=== PATIENT | male | born 1960 | race Caucasian/White ===

== ENCOUNTER 2024-08-20 08:33 | Outpatient (CLI) | payer OTHER, SELFPAY ==
--- NOTE | ~2024-08-20 | XR_ITS ---
XR wrist LT min 3V Ordering provider: Kale Langford, History: . fall, left wrist pain . Comparison: None. FINDINGS: BONES: Chip of bone is seen posteriorly which may indicate triquetral fracture. Follow-up advised.. N o definite scaphoid fracture. Sclerotic changes in the lunate bone. JOINT SPACES: Slight narrowing of the radiocarpal joint. SOFT TISSUES: Normal. IMPRESSION: Highly suggestive triquetral fracture. Sclerotic changes in the lunate bone. Fracture cannot be exclu ded. Follow-up advised. Reviewed, dictated and finalized at location A. [facility] IMPRESSION: Highly suggestive triquetral fracture. Sclerotic changes in the lunate bone. Fr acture cannot be excluded. Follow-up advised.
== END 2024-08-20 08:34 | disposition home or self-care (01) ==
PROVIDERS: PCP Internal Medicine; Visit Provider Internal Medicine
DX: R93.89 Abnormal findings on diagnostic imaging of other specified body structures (principal); M25.532 Pain in left wrist
CPT/HCPCS: 73110

== ENCOUNTER 2025-07-02 00:20 | Day surgery (SDC) | payer OTHER, SELFPAY ==
--- OUTSIDE RECORDS SUMMARY | 2025-06-04 01:15 | XMS_ITS | Continuity of Care Document ---
Author Organization [facility] Address [address] [place] [address] Phone Care Team Providers Care Investment Executive Name Role Phone Graeme Truong Unavailable Unavailable Procedures Procedure Date Therapeutic Activities Neuromuscular Re-Ed Therapeutic Exercise Progress Note Therapeutic Activities Neuromuscular Re-Ed Therapeutic Exercise Therapeutic Activities Neuromuscular Re-Ed Therapeutic Exercise Manual Therapy Electrical Stimulation Therapeutic Activities Neuromuscular Re-Ed Therapeutic Exercise Electrical Stimulation Doc neg elder mal no plan PT Evaluation Moderate Complexity Therapeutic Activities Neuromuscular Re-Ed Advance Directives Directive Yes / No Effective Date File Name No Information Encounters Encounter Description Practice Location Reason(s) For Visit Diagnoses Date Provider Providers Copied on Encounter [facility], [address], [place], [place], [id number], [place] tel:[phone] [place] No Information Francisco Bedolla. [address], [address], [place], [address], [place]. tel:[phone] Referring Provider: Kale Langford, [address] [place] [address], [address]. tel:[phone], [id number], [phone] [place] No Information 5 Muehl Graeme. [address] [place] [address], [address] tel: [phone] Referring Provider: Joycelyn [place], [place], [facility]. tel:[phone], [id number], tel:[phone] [place] No Information 0- 5 Muehl Graeme. [address] [place] [address], [place] [address], . tel: [phone] Referring Provider: Joycelyn [place], [place], [facility]. tel:[phone], [id number], tel:[phone] [place] No Information 5 5 Muehl Graeme. [address] [place] [address], [address], [facility], . tel: [phone] Referring Provider: Joycelyn [place], [place], [facility]. tel:[phone], [id number], tel:[phone] [place] No Information 3 5 Muehl Graeme. [address] [place] [address], [place] [address], . tel: [phone] Referring Provider: Joycelyn [place], [place], [facility]. tel:[phone] Family History Family Member Type Diagnosis Age At Onset No Information Payers Payer name Insurance type Covered libertarian ID Authoriza tion(s) Consociate CI [id number] Social History Type Description Quantity Date Captured Comments Sex Male Smoking Status No Information Chief Complaint And Reason For Visit No Information Reason For Referral Reason For Referral No Information History Of Present Illness Encounter Date Complaint History Of Prese nt Illness No Information Functional Status Date Functional Assessmen t No Information Instructions Date Instruction Additional Infor mation No Information Assessments Type Assessment Date No Information Patient Care Teams Name Effective Dates (start - stop) Status Members No Information
--- NOTE | 2025-06-21 10:20 | PC.NURSE ---
[facility] has started construction of its new state of the art ER which will open Spring 2026. With this, we anticipate parking may be a challenge for some our surgical patients and families. Parking spaces are limited but are available for all Surgical, obstetrics, and ER patients sharing this lot. If you arrive and find you are having a hard time finding a parking space, please note that we understand the challenges, please drive around the hospital and park near Hospital Entrance 1. When you enter this entrance, you can ask a volunteer to direct or take you back to the surgical waiting area to check in. We appreciate everyone?s understanding of these expected challenges while we build for your future. Report to the Outpatient Waiting Room, entrance under the green pavilion located off [address], at time _6 AM on date _07/02/25 . Planned Procedure Time: __7:30 AM .? Time changes happen often and if your time is changed the preop area will call you the afternoon before. - You and your visitor will be asked to self-screen and do not enter if you have any COVID symptoms. Please call surgeon if you need to reschedule. - A mask is optional within the hospital at this time. Patients may have clear liquids (water, carbonated beverages, clear teas, apple juice) until 3 hours prior to surgery( 4:30 am) with a maximum of 20 ounces. - No food from midnight until time of surgery and no smoking, or chewing tobacco (or any form of nicotine). No chewing gum, candy or mints. Take only the following medications with a SIP of water on the morning of surgery: NONE DO NOT STOP ANY OF YOUR OTHER PRESCRIPTION MEDICATIONS PRIOR TO SURGERY EXCEPT THE FOLLOWING Hold all vitamins and supplements for 3 days per anesthesiologist.LAST DOSE 06/28/25 Medications to discontinue per physician NONE Please no make-up, nail british, hairspray, perfume, deodorant, or body powder the day of surgery.? No jewelry (including any body piercings) or valuables the day of surgery, leave them at home.? Please take a shower or bath the night before, or the morning of, surgery with an antibacterial soap.? Wear comfortable, loose fitting clothing.? Children are encouraged to wear pajamas. - Jewelry must be removed prior to entering the operating room.? Rings and piercings that are not removed may be cut off. - The hospital will not accept responsibility for valuables.? - Please leave all valuables, including medications, at home the day of surgery. If you are going home after surgery, a licensed haul driver must drive you home.? - NO public transportation without another adult if you receive anesthesia. - We recommend that an adult stay with you for 24 hours following discharge. - We also recommend that you do not drive, make important decision, drink alcoholic beverages, or take any drugs that were not prescribed by your health care provider for at least 24 hours after your discharge time. For Pediatric surgeries, we recommend two adults accompany the child home. Follow any additional instructions given to you from your surgeon. Telephone instructions given to ____PATIENT and asked if any additional questions and then verbalized understanding. Patient advised to call surgeon office or pre surgery nurse liaison [phone] if any additional questions.
[2025-06-21 10:29] VITALS: BMI 29.9
[2025-07-02] VITALS (9 sets, daily range): BP systolic 99–138; BP diastolic 57–81; PULSE 56–90; RESP 10–18; TEMP 36.3–36.4; O2SAT 92–100
--- OUTSIDE RECORDS SUMMARY | 2025-07-02 00:22 | XMS_ITS | Clinical Summary ---
Author Organization [facility] Address [address] [place] [address] Care Team Providers Care Cold Mill Operator Name Role Phone Kale Langford MD Primary Care Provider [phone] Allergies No known active allergies Medications Fiber, Guar Gum, Chew Tab Chew 1 tablet by mouth daily. Active Vitamin D, Cholecalciferol , 25 MCG (1000 UT) Cap Take 1 capsule by mouth daily. Active tadalafil (CIALIS) 5 MG tabletIndicatio ns:Vasculogenic erectile dysfunction, unspecified vasculogenic erectile dysfunction type Take 1 tablet by mouth once daily 90 tablet 2 025 Active testosterone cypionate (DEPO TESTOSTERONE) 200 MG/ML injectionIndica tions:Hypogonad ism male INJECT 0.75 ML (CC) INTRAMUSCULARLY EVERY TWO WEEKS 6 mL 1 025 Active traMADol (ULTRAM) 50 MG tabletIndicatio ns:Chronic Pain Take 1 tablet (50 mg total) by mouth every 6 (six) hours as needed for Pain. Indications: Chronic Pain 30 tablet 025 Active Nabumetone (RELAFEN DS) 1000 MG TabIndications: Acute lateral meniscus tear of left knee, subsequent encounter Take 1 tablet by mouth daily. 30 tablet 2 025 Active Nabumetone (RELAFEN DS) 1000 MG TabIndications: Acute lateral meniscus tear of left knee, subsequent encounter Take 1 tablet by mouth daily. 30 tablet 2 025 2024 Discontinued Active Problems Problem Noted Date Diagnosed Date Acute pain of left knee 05/13/2025 Acute lateral meniscus tear of left knee 025 Triquetral chip fracture, left, closed, initial encounter 08/20/2024 Erectile dysfunction 01/30/2018 Umbilical hernia 12/07/2016 Enlarged prostate with lower urinary tract sympt oms (LUTS) 09/10/2015 Vitamin D deficiency 03/17/2015 Hypogonadism, testicular 03/05/2015 Encounters Date Type Department Care Team Description 06/18/[address] [address] Kale Langford MD Surgical Clearance 06/11/[address] [address] Kale Langford MD Prior Authorization (Nabumetone (RELAFEN DS) 1000 MG Tab) 06/11/[address] [address] Kale Langford MD Refill Request 06/06/2025 Scan [facility] Scanned, [facility] Image (SCAN) 05/31/2025 Scan [facility] Scanned, [facility] 05/23/[address] [address] Kale Langford MD Referral 05/20/2025 Scan [facility] Scanned, [facility] 05/16/[address] [address] Kale Langford MD Prior Authorization (Tramadol 50mg tab) 05/15/[address] [address] Kale Langford MD Knee Pain 05/13/[address] [address] Kale Langford MD Knee Pain 05/10/2025 Results Follow-Up [facility] [address] [address] Kale Langford MD MRI KNEE LT WO CON 05/08/2025 3:28 PM CDT - 05/08/2025 11:59 PM CDT [facility] [address] [facility] [place] [address] Kale Langford MD Discharge Disposition: Home or Self Care (Routine Discharge) 05/08/2025 Travel 04/25/2025 Telephone [facility] [address] [address] Kale Langford MD Joint Pain 04/15/2025 9:20 AM CDT Office Visit [address] [address] Kale Langford MD Knee Pain (Pt c/o posterior knee pain. Pt states he was walking on Tuesday and felt a pop in the back of his knee. ) 04/15/2025 Scan [facility] INFO SRVCS Scanned, [facility] 04/15/2025 - 04/15/2025 11:59 PM CDT Hospital Encounter [facility] [address] [place] [address] Kale Langford MD Discharge Disposition: Home or Self Care (Routine Discharge) 04/15/2025 Travel from Last 3 Months Immunizations Immunization Administration Dates Next Due Fluzone High Dose (IIV, trivalent, 0.5mL) 2023 Influenza (Generic) 06/07/2019 MODERNA COVID-19 (12+) MRNA, LNP-S, PF, 100 MCG/ 0.5 ML DOSE 10/17/2020,09/19/2020 PFIZER COVID-19 (MANCIA CAP), MRNA, LNP-S, PF, 30 MCG/0.3 ML BENEDICT-SUCROSE, IM 03/24/2022 Shingrix 08/04/2019,06/07/2019 Family History Medical History Relation Comments Colon Cancer Father Diabetes Father Type 2 Heart Disease Father By pass Prostate Cancer Father Stroke Father Diabetes Mother Type 2 Relation Status Comments Father Mother Social History Tobacco Use Types Packs/Day Years Used Date Smoking Tobacco: Never Smokeless Tobacco: Never Tobacco Cessation:Counseling Given: Not Answered Alcohol Use Standard Drinks/Week Comments Not Currently 0 (1 standard drink = 0.6 oz pur e alcohol) 1x/mo AUDIT-C Answer Date Recorded Frequency of Alcohol Consumption 2-4 times a tue07/31/2019 Average Number of Drinks 1 or 2 019 Frequency of Binge Drinking Never 07/09 PHQ-2 Answer Date Recorded Patient Health Questionnaire-2 Score 0 06/12/2024 Sex and Gender Information Value Date Recorded Sex Assigned at Male 04/15/2025 9:25 AM CDT Legal Sex Male 8:27 PM CDT Gender Identity Not on file Sexual Orientation Not on file Last Filed Vital Signs Vital Sign Reading Time Taken Comments Blood Pressure 102/60 04/15/2025 9:25 AM CDT Pulse 73 04/15/2025 9:25 AM CDT Temperature 36.8 C (98.2 F) 04/15/2025 9:25 AM CDT Respiratory Rate 16 04/15/2025 9:25 AM CDT Oxygen Saturation 98% 04/15/2025 9:25 AM CDT Inhaled Oxygen Concentration - - Weight 120.2 kg (265 lb) 04/15/2025 9:25 AM CDT Height 195.6 cm (6' 5) 04/15/2025 9:25 AM CDT Body Mass Index 31.42 04/15/2025 9:25 AM CDT Plan of Treatment Health Maintenance Due Date Last Done Comments Hepatitis C 1977 DTaP, Tdap and Td Vaccines (1 - Tdap) 1978 Pneumococcal Vaccine: 50+ Years (1 of 1 - PCV) 2009 PHQ-2 (Physician Sherrill) 08/08/2024 06/12/2024 COVID-19 Vaccine ( - season) 2025 03/24/2022, 07/04/2021, 10/17/2020, Additional history exists Influenza Adult (#1) 2025 06/12/2024, 06/07/20 19 Colorectal Cancer Screening Colonoscopy (10 Years) 02/19/2030 02/20/2020 RSV Immunization or 60+ Years (1 - 1-dose 75+ series) 2034 Zoster Vaccines Completed 08/04/2019, 06/07/2019 Hepatitis A Vaccines Aged Out No long er eligible based on patient's age to complete this topic Meningococcal B Vaccine Aged Out No l onger eligible based on patient's age to complete this topic Meningococcal Vaccine Aged Out No emely padmini eligible based on patient's age to complete this topic RSV Immunizations Under 20 Months Aged Out No longer eligible based on patient's age to complete this topic Medical Devices Implanted Type Area Windows Systems Administrator Device Identifier Shelf Expiration Date Model / Serial / Lot Toetac Xpress Hammertoe Fixation System Implanted:Qty: 1 on 03/28/2020 by Momo Akhtar DPM at [facility] Wire Right: Toe 06/14/2021 [id number] / / [id number] Procedures Procedure Name Priority Date/Time Associated Diagnosis Comments IMAGE GENERIC 06/06/2025 MRI KNEE LT WO CON Routine 05/08/2025 4: 20 PM CDT Effusion of bursa of left knee CULTURE, BACTERIA, NOT URINE,STOOL,BLOOD Routine 04/15/2025 2:43 PM CDT Effusion of left knee CELL COUNT W/ DIFF BODY FLUID Routine 04/15/2025 10:29 AM CDT Effusion of left knee CRYSTALS, BODY FLUID Routine 04/15/2025 10:29 AM CDT Effusion of left knee XR KNEE LT 3V Routine 04/15/2025 9:50 AM CDT Posterior left knee pain DRAIN/INJECT LARGE JOINT/BURSA Routine 04/15/2025 9:20 AM CDT Effusion of left knee from Last 3 Months Results * IMAGE GENERIC (06/06/2025) Anatomical Region Laterality Modality Other 06/06/2025 us [facility] Scanned SCANNING Final Resu lt * MRI KNEE LT WO CON (05/08/2025 4:20 PM CDT) Anatomical Region Laterality Modality Knee Magnetic Resonan ce 05/09/2025 1:43 PM CDT Impressions 05/09/2025 1:56 PM CDT IMPRESSION: Tear body medial meniscus. Joint effusion. Some minimal marrow edema or minimal subcortical bone sclerosis medial femoral condyle. Mild interstitial tissue edema about the knee most prominent anteromedially. Ordered By: KALE LANGFORD Interpreted By: Manjinder Sim MD, 05/09/2025 1:43 PM Narrative 05/09/2025 1:[address] PM [address]T [address] [address] 05/08/2025, 1608 hours. HISTORY: Left knee pain and swelling. Weakness for a month. Patient felt a pop while walking. No improvement after steroid injection. EXAM: MRI the left knee without contrast. MR imaging was performed in the axial, the sagittal and the coronal planes utilizing T1, proton density and fat sat proton density. No comparison. Correlation to radiographic imaging 04/15/2025. FINDINGS: Horizontal tear to inferior apical surface body medial meniscus. There may be a small surface tear in the peripheral superior surface of the medial meniscus as well. No tear, surface irregularity nor apical blunting lateral meniscus. The cruciate ligaments, medial collateral ligament, distal quadriceps tendon and patellar tendons are intact and normal in appearance. No remarkable thinning of the articular cartilage on the femoral condyles nor tibial plateaus. Thinning of the dorsal patellar cartilage with small spurring from the dorsal patellar surfaces consistent with developing osteoarthritis. A joint effusion is present. No popliteal cyst. No periarticular soft tissue mass. There is some slight increased fat sat proton density signal in the subcutaneous cortical region of the medial femoral condyle which may be reactive secondary to the torn medial meniscus and early arthritic change in the medial joint compartment, less likely bone contusion. Minimal interstitial edema about the knee in the subcutaneous fat. Procedure Note Manjinder Sim MD - 05/09/2025 [address] [place] [address] 05/08/2025, 1608 hours. HISTORY: Left knee pain and swelling. Weakness for a month. Patient felt apop while walking. No improvement after steroid injection. EXAM: MRI the left knee without contrast. MR imaging was performed in the axial, the sagittal and the coronal planesutilizing T1, proton density and fat sat proton density. No comparison.Correlation to radiographic imaging 04/15/2025. FINDINGS: Horizontal tear to inferior apical surface body medial meniscus.There may be a small surface tear in the peripheral superior surface ofthe medial meniscus as well. No tear, surface irregularity nor apicalblunting lateral meniscus. The cruciate ligaments, medial collateralligament, distal quadriceps tendon and patellar tendons are intact andnormal in appearance. No remarkable thinning of the articular cartilage onthe femoral condyles nor tibial plateaus. Thinning of the dorsal patellarcartilage with small spurring from the dorsal patellar surfaces consistentwith developing osteoarthritis. A joint effusion is present. No poplitealcyst. No periarticular soft tissue mass. There is some slight increasedfat sat proton density signal in the subcutaneous cortical region of themedial femoral condyle which may be reactive secondary to the torn medialmeniscus and early arthritic change in the medial joint compartment, lesslikely bone contusion. Minimal interstitial edema about the knee in thesubcutaneous fat. IMPRESSION: Tear body medial meniscus. Joint effusion. Some minimal marrow edema orminimal subcortical bone sclerosis medial femoral condyle. Mildinterstitial tissue edema about the knee most prominent anteromedially. Ordered By: KALE LANGFORD Interpreted By: Manjinder Sim MD, 05/09/2025 1:43 PM us Kale Langford MD MRI Final Result * CULTURE, BODY FLUID W/ GRAM STAIN (04/15/2025 2:43 PM CDT) SPEC DESCRIPTION KNEE,LEFT 04/15/2025 2:43 PM CDT [facility] SPECIAL REQUESTS NO SPECIAL REQUEST 04/15/2025 2:43 PM CDT [facility] GRAM STAIN RESULT NO NEUTROPHILS OR ORGANISMS SEEN 04/15/2025 11:10 PM CDT [facility] CULTURE RESULT NO GROWTH 5 DAYS 04/21/2025 9:53 AM CDT [facility] STRUCTURE OF LEFT KNEE REGION / Unknown 04/15/2025 2:43 PM CDT 04/15/2025 8:27 PM CDT us Kale Langford MD MICROBIOLOGY - GENERAL ORDERAB LES Final Result Performing Organization Address [facility] Co de Phone Number [facility] [address] [place] [address], [phone] * CRYSTALS, BODY FLUID (04/15/2025 10:29 AM CDT) COMMENT PRELIMINARY REPORT: 04/15/2025 9:16 PM CDT [facility] Comment: NO CRYSTALS TO BE REVIEWED BY PATHOLOGIST CRYSTAL SOURCE KNEE,LEFT 04/15/2025 2:43 PM CDT [facility] INTERPRETATION THIS CRYSTAL REPORT WAS INTERPRETED BY 04/16/2025 8:37 AM CDT [facility] Comment: DR ANNE MARIE PACHECO THE FLUID IS EXAMINED MICROSCOPICALLY WITH AND WITHOUT POLARIZED LIGHT AND WITH AND WITHOUT FIRST ORDER RED ADVISOR TO COMMAND IN COMBAT UNDER 10X AND 40X MAGNIFICATIONS. THE FLUID CONTAINS FEW WHITE BLOOD CELLS AND FEW RED BLOOD CELLS. THERE ARE NO MONOSODIUM URATE (MSU OR GOUT) OR CALCIUM PYROPHOSPHATE DIHYDRATE (CPPD OR PSEUDOGOUT) CRYSTALS IDENTIFIED. STRUCTURE OF LEFT KNEE REGION / Unknown 04/15/2025 10:29 AM CDT us Kale Langford MD BODY FLUIDS AND STOOLS ORDERAB LES Final Result Performing Organization Address [facility] Co de Phone Number [facility] [address] [place] [address], [phone] * CELL COUNT W/ DIFF BODY FLUID (04/15/2025 10:29 AM CDT) SOURCE (FLUID) KNEE,LEFT 04/15/2025 2:43 PM CDT [facility] TOTAL NUCLEATED CELL (BODY FLUID) 0.186 x10'3/uL 04/15/2025 9:10 PM CDT [facility] Comment:REFERENCE RANGE NOT ESTABLISHED RBC (FLUID) <0.002 x10'6/uL 04/15/2025 9:10 PM CDT [facility] Comment:REFERENCE RANGE NOT ESTABLISHED DIFFERENTIAL MANUAL DIFFERENTIAL PERFORMED ON CONCENTRATED CYTOSPIN 04/15/2025 2:43 PM CDT [facility] CELLS COUNTED 100 No COUNTED 04/15/2025 9:49 PM CDT [facility] SEGS (FLUID) 12 % 04/15/2025 9:48 PM CDT [facility] LYMPHS (FLUID) 10 % 04/15/2025 9:48 PM CDT [facility] OTHER MONONUCLEAR CELLS (FLD) 78 % 04/15/2025 9:48 PM CDT [facility] STRUCTURE OF LEFT KNEE REGION / Unknown 04/15/2025 10:29 AM CDT us Kale Langford MD BODY FLUIDS AND STOOLS ORDERAB LES Final Result Performing Organization Address City/State/[facility] Co de Phone Number [facility] [address] [place] [address], [phone] * XR KNEE LT 3V (04/15/2025 9:50 AM CDT) Anatomical Region Laterality Modality Knee Radiographic Andreea ging 04/15/2025 10:0 9 AM CDT Narrative 04/15/2025 10:51 AM CDT [facility] [address] [address] [facility] [address] [address] XR KNEE LT 3V: 04/15/2025 9:36 AM CLINICAL INDICATION: Posterior knee pain. COMPARISON: None available. TECHNIQUE: AP, lateral, sunrise views of the left knee. FINDINGS: There is sharpening of the tibial spines and tiny lateral compartment osteophytes. There are osteophytes in the patellofemoral compartment. There is a well- corticated smoothly rounded opacification posterior to the lateral femoral condyle consistent with fabella. No radiographic evidence of acute fracture or malalignment. No prominent cortical step-offs. No migratory or intra-articular loose bodies. IMPRESSION: 1. No acute osseous or articular abnormalities. 2. Degenerative changes of the left knee. Dictated By: Alex Leon MD on 04/15/2025 10:09 AM The attending radiologist has reviewed the image(s) and agrees with the content of this report. Referred By: KALE LANGFORD Interpreted By: Alex Leon MD, 04/15/2025 10:09 AM Procedure Note Robert Mitchell MD - 04/15/2025 [facility] [address] [address] [facility] [address] [address] XR KNEE LT 3V: 04/15/2025 9:36 AM CLINICAL INDICATION: Posterior knee pain. COMPARISON: None available. TECHNIQUE: AP, lateral, sunrise views of the left knee. FINDINGS: There is sharpening of the tibial spines and tiny lateral compartmentosteophytes. There are osteophytes in the patellofemoral compartment.There is a well- corticated smoothly rounded opacification posterior to thelateral femoral condyle consistent with fabella. No radiographic evidenceof acute fracture or malalignment. No prominent cortical step-offs. Nomigratory or intra-articular loose bodies. IMPRESSION: 1. No acute osseous or articular abnormalities. 2. Degenerative changes of the left knee. Dictated By: Alex Leon MD on 04/15/2025 10:09 AM The attending radiologist has reviewed the image(s) and agrees with thecontent of this report. Referred By: KALE LANGFORD Interpreted By: Alex Leon MD, 04/15/2025 10:09 AM Kale Langford MD GENERAL IMAGING Final Result * DRAIN/INJECT LARGE JOINT/BURSA (04/15/2025 9:20 AM CDT) Kale Brian MD - 04/15/2025 9:20 AM CDT Kale Langford MD 04/15/2025 11:13 AM *Joint Aspiration/Injection Date/Time: 04/15/2025 9:20 AM Performed by: Kale Langford MD Authorized by: Kale Langford MD Consent: Consent given by: Patient Risks, benefits, and alternatives were discussed: yes Risks discussed: Infection, pain and incomplete drainage Alternatives discussed: No treatment [place] protocol: Procedure explained and questions answered to patient or proxy's satisfaction: yes Relevant documents present and verified: yes Imaging studies available: yes Site/side marked: yes Immediately prior to procedure, a time out was called: yes Patient identity confirmed: Verbally with patient Location: Location: Knee Knee: L knee Anesthesia: Anesthesia method: Topical application Procedure details: Needle gauge: 20 G Ultrasound guidance: no Approach: Lateral Aspirate amount: 15 cc Aspirate characteristics: Serous Steroid injected: yes Specimen collected: yes Post-procedure details: Dressing: Adhesive bandage Procedure completion: Tolerated Comments: Injected using Depomedrol 80 mg and Bupivicaine 1cc us Kale Langford MD PROCEDURE/MINOR SURGICAL ORDER JESE Final Result from Last 3 Months Insurance [employer] Care Teams Cold Mill Operator Relationship Specialty Start Date End Date Kale Langford MD [address] [place] [id number] PCP - General INTERNAL MEDICINE 07/08/18
--- OUTSIDE RECORDS SUMMARY | 2025-07-02 00:22 | XMS_ITS | Encounter Summary ---
Author Organization [facility] Address [address] [place] [address] Care Team Providers Care Slitting Machine Operator Name Role Phone Kale Langford MD Primary Care Provider [phone] Encounter Details Date Type Department Care Team (Late st Contact Info) Description 02/19/2020 Prep for Procedure [facility] [place], [place] [id number] Tolu Dwyer MD [address] [facility] [address] [place] [id number] Social History Tobacco Use Types Packs/Day Years Used Date Smoking Tobacco: Never Smokeless Tobacco: Never Alcohol Use Standard Drinks/Week Comments Yes 0 (1 standard drink = 0.6 oz pur e alcohol) AUDIT-C Answer Date Recorded Frequency of Alcohol Consumption 2-4 times a tue07/31/2019 Average Number of Drinks 1 or 2 019 Frequency of Binge Drinking Never 07/09 PHQ-2 Answer Date Recorded PHQ-2 Score 0 07/31/2019 Sex and Gender Information Value Date Recorded Sex Assigned at Male 04/15/2025 9:25 AM CDT Legal Sex Male 8:27 PM CDT Gender Identity Not on file Sexual Orientation Not on file COVID-19 Exposure Response Date Recorded In the last month, have you been in contact with someone who was confirmed or suspected to have Coronavirus / COVID-19? No / Unsure 02/20/2020 7:47 AM CDT documented as of this encounter Plan of Treatment Not on file documented as of this encounter Results * RESPIRATORY PCR PANEL 2 (COLONSCOPY PATIENTS ONLY) (02/19/2020 9:12 AM CDT) ADENOVIRUS PCR (RESP) NOT DETECTED NOT DETECTED 02/19/2020 11:53 AM CDT [facility] CORONAVIRUS 229E PCR (RESP) NOT DETECTED NOT DETECTED 02/19/2020 11:53 AM CDT [facility] CORONAVIRUS HKU1 PCR (RESP) NOT DETECTED NOT DETECTED 02/19/2020 11:53 AM CDT [facility] CORONAVIRUS NL63 PCR (RESP) NOT DETECTED NOT DETECTED 02/19/2020 11:53 AM CDT [facility] CORONAVIRUS OC43 PCR (RESP) NOT DETECTED NOT DETECTED 02/19/2020 11:53 AM CDT [facility] METAPNEUMOVIRUS PCR (RESP) NOT DETECTED NOT DETECTED 02/19/2020 11:53 AM CDT [facility] RHINOVIRUS/ENTEROV IRUS PCR (RESP) NOT DETECTED NOT DETECTED 02/19/2020 11:53 AM CDT [facility] INFLUENZA A PCR (RESP) NOT DETECTED NOT DETECTED 02/19/2020 11:53 AM CDT [facility] INFLUENZA B PCR (RESP) NOT DETECTED NOT DETECTED 02/19/2020 11:53 AM CDT [facility] PARAINFLUENZA 1 PCR (RESP) NOT DETECTED NOT DETECTED 02/19/2020 11:53 AM CDT [facility] PARAINFLUENZA 2 PCR (RESP) NOT DETECTED NOT DETECTED 02/19/2020 11:53 AM CDT [facility] PARAINFLUENZA 3 PCR (RESP) NOT DETECTED NOT DETECTED 02/19/2020 11:53 AM CDT [facility] PARAINFLUENZA 4 PCR (RESP) NOT DETECTED NOT DETECTED 02/19/2020 11:53 AM CDT [facility] RSV PCR (RESP) NOT DETECTED NOT DETECTED 02/19/2020 11:53 AM CDT [facility] B PARAPERTUSIS PCR (RESP) NOT DETECTED NOT DETECTED 02/19/2020 11:53 AM CDT [facility] BORDETELLA PERTUSSIS PCR (RESP) NOT DETECTED NOT DETECTED 02/19/2020 11:53 AM CDT [facility] CHLAMYDOPHILA PNEUMONIAE PCR (RESP) NOT DETECTED NOT DETECTED 02/19/2020 11:53 AM CDT [facility] MYCOPLASMA PNEUMONIAE PCR (RESP) NOT DETECTED NOT DETECTED 02/19/2020 11:53 AM CDT [facility] CORONAVIRUS SARS COV 2 PCR (RESP) NOT DETECTED NOT DETECTED 02/19/2020 11:53 AM CDT [facility] Comment: THE SARS-CoV-2 TEST HAS BEEN AUTHORIZED BY THE FDA UNDER AN EUA FOR USE BY AUTHORIZED LABORATORIES. NASOPHARYNGEAL STRUCTURE / Unknown 02/19/2020 9:12 AM CDT Tolu Dwyer MD MICROBIOLOGY - GENERAL TINA SWIFT Final Result [facility] [address] [place] [address], documented in this encounter Visit Diagnoses Diagnosis Family history of colon cancer- Primary Family history of malignant neoplasm of gastrointestinal tract documented in this encounter Additional Health Concerns Infection Onset Date Last Indicated Resolved Time COVID-19 Rule Out 02/19/2020 02/19/2020 02/19/2020 11:53 AM CDT COVID-19 Rule Out 03/25/2020 03/25/2020 03/26/2020 10:03 PM CDT COVID-19 Rule Out 08/06/2021 08/06/2021 08/06/2021 9:58 AM BRIDGE INSTRUCTOR COVID-19 Rule Out 09/16/2021 09/16/2021 09/16/2021 12:10 PM BRIDGE INSTRUCTOR documented as of this encounter Care Teams Slitting Machine Operator Relationship Specialty Start Date End Date Kale Langford MD [address] [place] [id number] PCP - General INTERNAL MEDICINE 07/08/18 documented as of this encounter
--- OUTSIDE RECORDS SUMMARY | 2025-07-02 00:22 | XMS_ITS | Encounter Summary ---
Author Organization [facility] Address [address] [place] [address] Care Team Providers Care Rhinestone Setter Name Role Phone Kale Langford MD Primary Care Provider [phone] Encounter Details Date Type Department Care Team (Late st Contact Info) Description 03/24/2020 Prep for Procedure [facility] Pre-Admission Testing [facility] [place] [address] Momo Akhtar, DPCecy [address] [facility] [address] [place] [address] Social History Tobacco Use Types Packs/Day Years [...] have Coronavirus / COVID-19? No / Unsure 03/24/2020 4:09 PM CDT documented as of this encounter Plan of Treatment Not on file documented as of this encounter Results * PRE-SURGICAL/PRE-PROCEDURE CORONAVIRUS (COVID 19) (03/25/2020 2:30 PM CDT) CORONAVIRUS SARS COV 2 PCR (RESP) NOT DETECTED NOT DETECTED 03/26/2020 10:03 PM CDT [facility] Comment: A Not Detected (negative) test result for this test means that SARS- CoV-2 RNA was not present in the specimen above the limit of detection. A negative result does not rule out the possibility of COVID-19 and should not be used as the sole basis for treatment or patient management decisions. If COVID-19 is still suspected, based on exposure history together with other clinical findings, re-testing should be considered in consultation with public health authorities. Laboratory test results should always be considered in the context of clinical observations and epidemiological data in making a final diagnosis and patient management decisions. Please review the Fact Sheets and FDA authorized labeling available for health care providers and patients using the following websites: https://www.liveBooks.[employer]inery[employer]/home/Covid-19/HCP/NAAT/fact-sheet2 https://www.liveBooks.[employer]/home/Covid-19/Patients/NAAT/ fact-sheet2 This test has been authorized by the FDA under an Emergency Use Authorization (EUA) for use by authorized laboratories. Due to the current public health emergency, [facility] is receiving a high volume of samples from a wide variety of swabs and media for COVID-19 testing. In order to serve patients during this public health crisis, samples from appropriate clinical sources are being tested. Negative test results derived from specimens received in non-commercially manufactured viral collection and transport media, or in media and sample collection kits not yet authorized by FDA for COVID-19 testing should be cautiously evaluated and the patient potentially subjected to extra precautions such as additional clinical monitoring, including collection of an additional specimen. Methodology: Nucleic Acid Amplification Test (NAAT) includes PCR or TMA Additional information about COVID-19 can be found at the [facility] website: www.[employer]/Covid19. Test performed at [facility] [address] [place] [address] Director: KIRBY KAPADIA DO,MPH NASOPHARYNGEAL SWAB / Unknown 03/25/2020 2:30 PM CDT us [facility] - GENERAL ORDERABLE S Final Result [facility] [address] [address], documented in this encounter Visit Diagnoses Diagnosis Preop examination- Primary Preoperative examination, unspecified documented in this encounter Additional Health Concerns Infection Onset Date Last Indicated Resolved Time COVID-19 Rule Out 03/25/2020 03/25/2020 03/26/2020 10:03 PM CDT COVID-19 Rule Out 08/06/2021 08/06/2021 08/06/2021 9:58 AM MANAGER DOMESTIC COVID-19 Rule Out 09/16/2021 09/16/2021 09/16/2021 12:10 PM MANAGER DOMESTIC documented as of this encounter Care Teams Rhinestone Setter Relationship Specialty Start Date End Date Kale Langford MD [address] [place] [id number] PCP - General INTERNAL MEDICINE 07/08/18 documented as of this encounter
[2025-07-02] MEDS: ACETAMINOPHEN 500 MG TABLET 1000 MG PO (08:05)
[2025-07-02] MEDS: CELECOXIB 200 MG CAPSULE PO (08:05)
[2025-07-02] MEDS: LACTATED RINGERS 1,000 ML 30 ML IV CONT ×2 (08:10→11:00)
--- NOTE | 2025-07-02 08:57 | WPDANESEPPF ---
Anes - Initial Pre Proc Eval Procedure: Operation Date: 07/02/25 09:30 Proposed Procedures p Left Knee Arthroscopy, Proceed As Indicated - Emeterio Russo MD Date/Time: 07/02/25 08:57 Surgeon: Emeterio Russo MD Pre Op Diagnosis: left knee medial meniscal tear Patient Data Age: 65 Gender: M Height: 1.96 m Weight: 113.5 kg Last Vital Signs Temp 97.3 F L 07/02/25 07:50 Pulse 71 07/02/25 07:50 Resp 18 07/02/25 07:50 BP 126/78 07/02/25 07:50 Pulse Ox 96 07/02/25 07:50 O2 Del Method Room Air 07/02/25 07:50 Allergies Allergy/AdvReac Type Severity Reaction Status Date / Time No Known Allergies Allergy Verified 07/02/25 07:54 Home Medications ?Medication ?Instructions ?Recorded ?Confirmed ?Type tramadol 50 mg tablet 50 mg PO QHS PRN pain 06/06/25 06/21/25 History cholecalciferol (vitamin D3) 25 25 mcg PO DAILY 06/21/25 07/02/25 History mcg (1,000 unit) capsule fiber 1 cap PO DAILY 06/21/25 07/02/25 History tadalafil 5 mg tablet 5 mg PO DAILY 06/21/25 07/02/25 History testosterone cypionate 200 mg/mL 200 mg IM .TWICE A MONTH 06/21/25 06/21/25 History intramuscular oil Patient hx anesthesia problems: none Family hx anesthesia problems: none Results Review: All pre-operative results and documents have been reviewed as part of the pre-operative evaluation. [facility] Family History Family History Father Cerebrovascular accident Patient's father is Mother Patient's mother is Social History Social History Smoking status: Never smoker Alcohol intake: current Alcohol use details: TWO DRINKS PER MONTH Living arrangements: with family Spiritual care concerns: No Anes - Eval Final PreProcedure Day of Procedure 07/02/25 08:57 Patient weight: overweight Lungs: normal air movement Airway: Mallampati scale class 1 Neurological: alert and oriented Last oral intake: >/= 8 hours ASA classification: I Emergent: no Anesthetic plan: proceed Anesthesia type and monitoring: general LMA and standard monitoring Results Review: All pre-operative results and documents have been reviewed as part of the pre-operative evaluation. Healthy 65 yo male, walks treadmill/outdoors, most days, no cp or sob. Informed Consent: The patient's anesthetic plan and its attendant risks and benefits were discussed with the patient/family/POA. Questions were solicited and answers provided to the satisfaction of the patient/family/POA.
--- NOTE | 2025-07-02 09:25 | WPDHPUPDATE1 ---
History and Physical Update Update Date/Time: 07/02/25 09:25 History and Physical has been reviewed, including an updated exam of the patient. There are NO changes in the patient's condition. Risks, benefits, and alternatives have been discussed and questions answered. Patient agrees to proceed with procedure.
[2025-07-02] MEDS: ceFAZolin 2 GM in SODIUM CHLORIDE 0.9% IV 50 ML 100 ML IVPB (09:39)
[2025-07-02] MEDS: BUPivacaine HCL 0.5% 10 ML AMP 30 ML INFILTRATE (10:02)
--- NOTE | 2025-07-02 11:01 | W.PM.PROC2 ---
Procedure Note - Detailed Date of Procedure 07/02/25 Pre-op Diagnosis left knee medial meniscal tear Post-op Diagnosis Same Procedure Performed LEFT KNEE SCOPE Surgeon Emeterio Russo MD Anesthesia General Description of Procedure PATIENT WAS TAKEN TO THE OR. LEFT LEG WAS PREPPED AND DRAPED STERILE. TROCARS WERE PLACED IN THE USUAL FASHION. CAMERA WAS INTRODUCED. THERE WAS CHONDROMALACIA TO THE PATELLA FEMORAL JOINT. THERE WAS A LOT OF SYNOVITIS IN ALL COMPARTMENTS. THE MEDIAL COMPARTMENT SHOWED CHONDROMALACIA TO THE MEDIAL FEMORAL CONDYLE. A SHAVER WAS USED TO PREFORM A CHONDROPLASTY. THERE WAS A COMPLEX MEDIAL MENISCUS TEAR. THE TEAR WAS RESECTED WITH A BITER AND A SHAVER DOWN TO A SMOOTH BASE. THE ACL WAS INTACT. THE LATERAL MENISCUS WAS NOT TORN. THE LAT COMPARTMENT HAD MINIMAL CHONDROMALACIA. CHONDROPLASTY WAS PREFORMED. A SYNOVECTOMY WAS PREFORMED WELL. THE PATELLO FEMORAL JOINT UNDERWENT CHONDROPLASTY. THERE WAS GRADE 3 CHONDROMALACIA IN PART OF THE TROCHLEA AND PART OF THE PATELLA. THE TROCHLEA ALSO HAD AREAS OF FULL THICKNESS CARTILAGE DEFECTS. SYNOVECTOMY WAS PREFORMED IN THE SUPERIOR MEDIAL COMPARTMENT. THE WOUNDS WERE APPROXIMATED WITH 4.0 NYLON. STERILE DRESSING WAS APPLIED. PATIENT WAS EXTUBATED. Estimated Blood Loss 5 Complications No immediate complications Condition Stable Disposition PACU
[2025-07-02] MEDS: fentaNYL CITRATE INJ (*CRX) 100 MCG/2 ML VIAL 25 MCG IV PUSH ×4 (11:32→11:41)
[2025-07-02] MEDS: ONDANSETRON INJ 4 MG/2 ML VIAL IV PUSH (12:19)
== END 2025-07-02 13:16 | disposition home or self-care (01) ==
PROVIDERS: PCP Internal Medicine; Visit Provider Orthopaedic Surgery
PROC: (CPT 29870; principal; 2025-07-02 09:30)
DX: S83.232A Complex tear of medial meniscus, current injury, left knee, initial encounter (principal); M65.862 Other synovitis and tenosynovitis, left lower leg; M22.42 Chondromalacia patellae, left knee; X50.0XXA Overexertion from strenuous movement or load, initial encounter
CPT/HCPCS: 29881; 29876; J0690; A9270; J1100; J2003; J2250; J2405; J2704; J3010; J7120